=== PATIENT | female | born 1970 | race Caucasian/White ===

== ENCOUNTER 2020-01-04 16:37 | Inpatient (IN) | payer MEDICARE, MEDICAID ==
[~2020-01-04] VITALS: Ht 172.7 cm; Wt 129.3 kg
[~2020-01-04 16:37] MED LIST: ACYCLOVIR; AMOXICILLIN 50500 MG PO; IBU800 M1 PO; LORTAB 5/500 501 TAB PO; MOTRIN 800800 MG/TAB PO; NAPROSYN500 MG PO; NO HOME MEDICATIONS; PERCOCET 325 MG1 TA2 PO; PREDNISONE20 MG PO
[2020-01-04 17:55] LABS: BASO # 0.1 (0.0-0.2); BASO % 0.7 % (0.0-2.0); BILIRUBIN,TOTAL 0.7 mg/dL (0.0-1.0); C-REACTIVE PROTEIN 4.3 mg/dL (0.0-0.9); CALCIUM 8.9 mg/dL (8.4-10.2); CREATININE, serum 0.57 (0.52-1.25); EOS # 0.2 (0.0-0.7); EOS % 1.5 % (0-4.0); GRAN # 9.8 (1.4-6.5); GRAN % 78.7 % (42.2-75.2); HEMOGLOBIN 12.7 g/dl (12.5-16.0); LYMPH # 1.5 (1.2-3.4); LYMPH % 11.8 % (20.0-51.0); MEAN CELL VOLUME 85 fl (80.0-100.0); MEAN CORPUSCULAR HEMOGLOBIN 26 pg (27.0-31.0); MEAN CORPUSCULAR HGB CONC 30 g/dl (33.0-37.0); MEAN PLATELET VOLUME 11.3 fl (7.4-10.4); MONO # 0.9 (0.1-0.6); PLATELET COUNT 269 K/mm3 (130-400); POTASSIUM 4.7 mmol/L (3.4-5.0); RED BLOOD COUNT 4.95 M/mm3 (4.10-5.30); REDCELL DISTRIBUTION WIDTH-CV 15.1 % (11.5-14.5); TOTAL PROTEIN 7.2 gm/dL (6.4-8.2)
[2020-01-04 19:06] LABS: COLLECTION METHOD CLEAN CATCH
[2020-01-04 19:23] LABS: PH 5 (5-8); URINE APPEARANCE Clear; URINE BACTERIA None Seen /hpf; URINE BILIRUBIN Negative (NEGATIVE); URINE BLOOD Negative (NEGATIVE); URINE COLOR Yellow; URINE GLUCOSE Negative (NEGATIVE); URINE KETONE Negative (NEGATIVE); URINE LEUKOCYTE ESTERASE Negative (NEGATIVE); URINE NITRATE Negative (NEGATIVE); URINE PROTEIN(semi-quant) Negative (NEGATIVE); URINE RBC 0-2 /hpf; URINE UROBILINOGEN Negative (NEGATIVE)
[2020-01-04 19:25] LABS: TROPONIN-I 0.018 ng/mL (0.000-0.035)
--- NOTE | 2020-01-04 21:05 | NUR ---
Pt arrived to floor via stretcher. Pt voices no c/o pain or discomfort at this time. Assessment completed. No further concerns. Will continue to monitor through the night. Cardiology consult in the AM.
[2020-01-05] VITALS (10 sets, daily range): BP systolic 109–130; BP diastolic 53–98; PULSE 95–110; TEMP 97.8–99.9
[2020-01-05 06:31] LABS: BASO % 0.3 % (0.0-2.0); EOS # 0.1 (0.0-0.7); EOS % 0.5 % (0-4.0); GRAN # 10.7 (1.4-6.5); GRAN % 86.2 % (42.2-75.2); HEMATOCRIT 42.8 % (37.0-47.0); HEMOGLOBIN 12.3 g/dl (12.5-16.0); LYMPH # 0.9 (1.2-3.4); LYMPH % 7.1 % (20.0-51.0); MEAN CELL VOLUME 89 fl (80.0-100.0); MEAN CORPUSCULAR HEMOGLOBIN 26 pg (27.0-31.0); MEAN CORPUSCULAR HGB CONC 29 g/dl (33.0-37.0); MEAN PLATELET VOLUME 11.9 fl (7.4-10.4); MONO # 0.7 (0.1-0.6); MONO % 5.5 % (1.7-9.3); PLATELET COUNT 280 K/mm3 (130-400); RED BLOOD COUNT 4.82 M/mm3 (4.10-5.30); REDCELL DISTRIBUTION WIDTH-CV 15.2 % (11.5-14.5)
[2020-01-05 06:48] LABS: ALBUMIN 3.8 gm/dL (3.5-5.0); BILIRUBIN UNCONJUGATED 0.3 mg/dL (0.0-1.1); BILIRUBIN,DIRECT 0.2 mg/dL (0.0-0.4); BILIRUBIN,TOTAL 0.6 mg/dL (0.0-1.0); CALCIUM 8.6 mg/dL (8.4-10.2); CREATININE, serum 0.66 (0.52-1.25); POTASSIUM 5.1 mmol/L (3.4-5.0); TOTAL PROTEIN 6.9 gm/dL (6.4-8.2)
[2020-01-05 06:58] LABS: TROPONIN-I 0.035 ng/mL (0.000-0.035)
[2020-01-05 07:27] LABS: CHOLESTEROL RISK RATIO 2.3; MAGNESIUM 1.8 mg/dL (1.6-2.3)
--- NOTE | 2020-01-05 08:13 | NUR ---
Patient is alert and oriented. she is anxious. patient have a new order for urine drug screen and serum alcohol.
[2020-01-05 10:31] LABS: TRICYCLIC ANTIDEPRESS URINE NEGATIVE
[2020-01-05 11:48] LABS: INR 1.1 (0.8-3.0); PROTHROMBIN TIME 12.4 SECONDS (9.7-12.8)
--- NOTE | 2020-01-05 15:34 | NUR ---
SEE MERGE FOR MEDICATION ADMINISTRATION TIMES AND INTRA AND POST SEDATION ASSESSMENTS.
--- NOTE | 2020-01-05 16:18 | NUR ---
hand off report to shiv villanueva. pt is alert and oriented. hemostasis noted to r wrist. TR band in place with 11 in the band. pt on 6L per oxymask. family at bedside with patient. shiv villanueva instructed that pt was given 20mg of lasix prior to C, dr. jon stated he may add another dose upon arrival back to the room. shiv Villanueva notified.
--- NOTE | 2020-01-05 17:09 | NUR ---
Prospecting Observer met with patient to discuss discharge planning. Patient lives in [place] with her two grandchildren. Patient does not currently have a primary care physician but intends to follow up with one upon discharge. Patient obtains medications from [facility] in [place] with no difficulties. Patient does not use any DME at home. Patient is currently requiring oxygen although does not have home oxygen set up. SW to continue to monitor. Patient reports she is usually independent with ADLS. Patient states her mother Maria G (ph#[phone]) is her DPOA-HC. Patient plans to return home upon discharge. SW to continue to follow.
--- NOTE | 2020-01-05 17:32 | NUR ---
20G IV placed in left hand. Patient tolerated well. One attempt. Under supervision on Mona GONZALEZ.
--- NOTE | 2020-01-05 19:43 | NUR ---
Patient is alert and oriented , was anxious and tearful this morrning. patient was positive for amphetamine, benzodiazapines, cannabinoids. Dr Jeffers was informed when he came around for cardiac consult. ECG result was sinus tachy, abnormal rhythm. echogram result shows ejection fraction of 25-30% with regurgitation of all three valvs. Heart cath was accessed through Right Radial. crown and bridge dental lab technician nurse said patient result came back clean. post cath vital was within define limit, patient denies any pain. Temp elevated from 98.1 to 99.9. compression was removed from right radial. there was bleeding. Patient is resting on the bed after eating dinner. patient complain of mild throat pain after giving report to night nurse - CARLOS Benitez. nurse was informed. this afternoon patient IV dislogged, A student nurse Torie inserted a 20G in her Right hand.
--- NOTE | 2020-01-05 22:12 | NUR ---
RECIEVED REPORT FROM DAY SHIFT NURSE. PATIENT WAS NOT HAVING ANY PAIN. BUT THEN REPORTED PAIN AN HOUR OR SO LATER AND PAIN MEDICATIONS WERE GIVEN TO PATIENT TO HELP WITH THE PATIENT. PATIENT WAS EMOTIONAL AND JUST STARTED CRYING WHEN HER MOTHER WALKED INTO THE ROOM. MOTHER WANTED AN UPDATE AND WHAT THE PLAN IS. PLAN IS TO GIVE THE PATIENT SOME LASIX AND WATCH HER I/O'S. TEMPERATURE WAS UNDERCONTROL AND NOT A CONCERN.
[2020-01-06] VITALS (7 sets, daily range): BP systolic 105–138; BP diastolic 50–87; PULSE 87–104; TEMP 97.6–99
--- NOTE | 2020-01-06 05:21 | NUR ---
PATIENT HAS BEEN SLEEPING THROUGHOUT THE NIGHT. PUSHED THE CALL LIGHT A COUPLE OF TIMES ON ACCIDENT AND DIDNT NEED ANY HELP. NO NEEDS AT THIS TIME. WILL GIVE LEONIDES SHIFT REPORT ON THE PLAN PER THE DOCTORS NOTE TO DIURES HER AND WATCH HER I/O.
[2020-01-06 09:14] LABS: BASO # 0.1 (0.0-0.2); BASO % 0.4 % (0.0-2.0); EOS % 0.2 % (0-4.0); GRAN # 9.8 (1.4-6.5); GRAN % 85.6 % (42.2-75.2); HEMATOCRIT 39.8 % (37.0-47.0); HEMOGLOBIN 11.7 g/dl (12.5-16.0); LYMPH # 0.8 (1.2-3.4); LYMPH % 7.4 % (20.0-51.0); MEAN CELL VOLUME 89 fl (80.0-100.0); MEAN CORPUSCULAR HEMOGLOBIN 26 pg (27.0-31.0); MEAN CORPUSCULAR HGB CONC 29 g/dl (33.0-37.0); MEAN PLATELET VOLUME 11.4 fl (7.4-10.4); MONO # 0.7 (0.1-0.6); PLATELET COUNT 243 K/mm3 (130-400); RED BLOOD COUNT 4.48 M/mm3 (4.10-5.30); REDCELL DISTRIBUTION WIDTH-CV 15.1 % (11.5-14.5)
[2020-01-06 09:28] LABS: ALBUMIN 3.5 gm/dL (3.5-5.0); BILIRUBIN,TOTAL 0.5 mg/dL (0.0-1.0); CREATININE, serum 0.59 (0.52-1.25); POTASSIUM 4.7 mmol/L (3.4-5.0); TOTAL PROTEIN 6.4 gm/dL (6.4-8.2)
--- NOTE | 2020-01-06 10:56 | NUR ---
Initial visit; Patient and her mother thanked Rough Rice Grader for looking in on her, offering prayer and encouragement.
--- NOTE | 2020-01-06 11:18 | NUR ---
Waterworks Supervisor attended clinical rounds with the team. Patient requiring 4 liters of oxygen at this time. SW reviewed patient's progress note which stated patient's UDS tested positive for amphetamines, methamphetamines, THC, and benzos. Per intake yesterday, patient is primary caregiver for her two grandchildren ages 7 and 11. Patient's grandchildren currently being cared for by her aunt, Vidhi. SW made report to Child Protective Services about the above listed concerns for substance abuse. Intake #[id number].
--- NOTE | 2020-01-06 11:22 | NUR ---
Reported onto CARLOS Oconnell. Assessment as charted. Pt has O2 nasal cannula on at 4L, 96%. Tele on. Implemented I&O measures. INT left hand, no swelling or redness noted. VSS.
--- NOTE | 2020-01-06 16:08 | NUR ---
Veneer Sorter met with patient to address UDS that was positive for amphetamines, methamphetamines, THC, and benzos. Patient denies use of amphetamines, methamphetamines, and benzos but does state that she was in a dumpster on Sunday and didn't know what she may have come into contact with. Patient reports she goes "dumpster diving" on occasion. Patient states she does use marijuana occasionally whenever she can afford it, which is not often. Patient states she has been drug free for over two years but has a history of substance abuse. Patient reports she has had both inpatient and outpatient treatment in the past in [place] and [place]. Patient reports one of her relapses was after the of her cousin. Patient states she is aware of NA meetings in her area and knows how to access meetings if she feels she needs them. Patient states she has been institutionalized before for mental health issues. Patient does not currently receive any mental health services as [place] which makes it difficult to make appointments. Patient states she will not go to if she did establish any mental health services. SW provided patient with list of mental health therapists and social workers in the [facility] for patient to review. SW to continue to follow as needed.
--- NOTE | 2020-01-06 20:00 | NUR ---
Recieved report from CARLOS Oconnell. Assessment complete. Alert and oriented. Pt laying in bed. C/O headache and pain to neck and seems agitated. PRN tylenol and PRN ativan adminsitered. INT to LW intact, flushed, dressing CDI. Tele monitor in place, leads checked. Needs met. Call light within reach.
[2020-01-07 04:01] VITALS: BP 147/42; PULSE 92; TEMP 98.4
--- NOTE | 2020-01-07 05:48 | NUR ---
Pt made no complaints during this shift. Needs met. Call light within reach.
[2020-01-07 06:05] LABS: BASO # 0.1 (0.0-0.2); BASO % 0.6 % (0.0-2.0); EOS # 0.1 (0.0-0.7); GRAN # 6.8 (1.4-6.5); GRAN % 76.5 % (42.2-75.2); HEMATOCRIT 40.4 % (37.0-47.0); HEMOGLOBIN 11.7 g/dl (12.5-16.0); LYMPH # 1.2 (1.2-3.4); LYMPH % 13.3 % (20.0-51.0); MEAN CELL VOLUME 89 fl (80.0-100.0); MEAN CORPUSCULAR HEMOGLOBIN 26 pg (27.0-31.0); MEAN CORPUSCULAR HGB CONC 29 g/dl (33.0-37.0); MEAN PLATELET VOLUME 11.3 fl (7.4-10.4); MONO # 0.8 (0.1-0.6); MONO % 8.4 % (1.7-9.3); PLATELET COUNT 238 K/mm3 (130-400); RED BLOOD COUNT 4.56 M/mm3 (4.10-5.30); REDCELL DISTRIBUTION WIDTH-CV 14.9 % (11.5-14.5)
[2020-01-07 06:16] LABS: CALCIUM 8.1 mg/dL (8.4-10.2); CREATININE, serum 0.58 (0.52-1.25); POTASSIUM 4.3 mmol/L (3.4-5.0)
--- NOTE | 2020-01-07 06:58 | NUR ---
Report given to CARLOS Gary.
[2020-01-07 07:18] VITALS: BP 108/54; BP 128/71; PULSE 89; TEMP 98.3
--- NOTE | 2020-01-07 08:45 | NUR ---
Assessment complete. Pt resting in bed with eyes closed upon entering room, awakens easily with verbal stimuli, A&O x 3. Physical assessment unremarkable with trace edema to BLE. Saline lock IV to left hand without s/s of complications. Pt reports pain to back of neck 9 out of 10, requests medication if available. O2 at 4 L/min via NC with sats 96%, O2 turned down to 3 L/min and sats at 94%, O2 turned further down to 2 L/min via NC and RT notified. No further needs reported. Call light in reach.
[2020-01-07 11:07] VITALS: BP 134/71; PULSE 83; TEMP 98
--- NOTE | 2020-01-07 11:30 | NUR ---
Upon entering to administer sched medication, pt resting with eyes closed, nasal cannula laying next to pt's shoulder, sats reading 70% on room air. Nasal cannula replaced by this nurse and O2 turned up to 3 L/min, sats increase to 95% after deep breaths by pt. RT and PA notified.
--- NOTE | 2020-01-07 16:12 | NUR ---
[place] was contacted by patient's mother Maria G (ph#[phone]) who would like to meet with SW to discuss discharge planning. BURAK will meet with Maria G in patient's room tomorrow at 0830.
[2020-01-07 16:23] VITALS: BP 124/75; PULSE 92; TEMP 97.9
--- NOTE | 2020-01-07 18:45 | NUR ---
Bedside report with CARLOS Sarah. Upon entering room, pt laying in bed, moaning, reports having coughed which caused a headache. PRN Tylenol to be administered with bedtime medications. NC up on pt's forehead, replaced in nares, sats reading 92%.
[2020-01-07 20:50] VITALS: BP 126/64; PULSE 93; TEMP 98.2
--- NOTE | 2020-01-07 21:12 | NUR ---
PT GROANING UPON ENTRY, ASKED FOR TYLENOL REPORTING PAIN 5/10 IN NECK. TYLENOL ADMINISTERED AND VITALS TAKEN. OXYGEN STABLE SO LOWERED O2 TO 2L, TOLERATING WELL. WATER, TABLE, CALL LIGHT AT BEDSIDE. PT HAD NO OTHER REQUESTS, BED IN LOWEST POSITION.
[2020-01-07 23:15] VITALS: BP 128/65; PULSE 83; TEMP 97.9
[2020-01-08] VITALS (7 sets, daily range): BP systolic 128–152; BP diastolic 69–94; PULSE 83–124; TEMP 97.2–100.3
--- NOTE | 2020-01-08 05:06 | NUR ---
PT IN BED SLEEPING, PT ALERT ORIENTED, HARD TO TELL IF BLE WEAKNESS IS ACUTALLY WEAKNESS OR IF SHE JUST DOES NOT WANT TO HOLD HER LEGS UP FOR EXTENDED AMOUNT OF TIME. INDEPENDENT IN ROOM FINE, SHIFT UNREMARKABLE. BED IN LOW POSITION, OVERALL PLEASANT, GROANS WHEN ASLEEP AND AWAKE, STATES PAIN 5/10 IN NECK. CALL LIGHT AND WATER WITHIN REACH, WATER REFILLED, NO OTHER NEEDS AT THIS TIME.
[2020-01-08 08:04] LABS: BASO # 0.1 (0.0-0.2); BASO % 0.6 % (0.0-2.0); EOS # 0.2 (0.0-0.7); EOS % 1.9 % (0-4.0); GRAN # 6.5 (1.4-6.5); HEMATOCRIT 42.1 % (37.0-47.0); HEMOGLOBIN 12.3 g/dl (12.5-16.0); LYMPH # 1.3 (1.2-3.4); LYMPH % 15.6 % (20.0-51.0); MEAN CELL VOLUME 88 fl (80.0-100.0); MEAN CORPUSCULAR HEMOGLOBIN 26 pg (27.0-31.0); MEAN CORPUSCULAR HGB CONC 29 g/dl (33.0-37.0); MEAN PLATELET VOLUME 11.1 fl (7.4-10.4); MONO # 0.6 (0.1-0.6); MONO % 6.6 % (1.7-9.3); PLATELET COUNT 264 K/mm3 (130-400); RED BLOOD COUNT 4.81 M/mm3 (4.10-5.30); REDCELL DISTRIBUTION WIDTH-CV 14.7 % (11.5-14.5)
[2020-01-08 08:21] LABS: CALCIUM 8.4 mg/dL (8.4-10.2); CREATININE, serum 0.63 (0.52-1.25); POTASSIUM 4.7 mmol/L (3.4-5.0)
--- NOTE | 2020-01-08 13:22 | NUR ---
Manager Online met with patient, patient's mother Maria G and patient's aunt Patrick to discuss discharge planning. Patient's mother reports that she has concerns about patient caring for her grandchildren while she is recovering from being in the hospital. Patient became tearful and stated that the kids were staying with her and not going anywhere. Maria G advised that's not what she meant and only meant that patient will need some help upon discharge. Maria G reports she plans to stay with patient for some time before returning to [place]. BURAK advised she would contact [facility] to explore if in home supports were available through patient's Medicaid. BURAK attended clinical rounds with the team and Hospitalist answered questions about patient's diagnosis and plan of care. Patient's current diet was discussed and patient expressed she does not eat well. Hospitalist to order Dietitian consult. BURAK contacted the [employer] and left a message for Ludmila in options counseling. BURAK also followed up with patient and provided [facility] Resource Guide. BURAK pointed out food resource in [place], where patient lives and patient states she already utilizes this resource. Patient states she will look over guide at a later time. SW to continue to follow.
--- NOTE | 2020-01-08 13:43 | NUR ---
RA SP02 ASLEEP 82%. PLACED ON 2 LPM NC 92%. RN NOTIFIED
--- NOTE | 2020-01-08 16:41 | NUR ---
SW presented Medicare.gov's list of home health agencies in the patient's geographical location. The patient chose [facility]. Referral faxed. Awaiting response.
--- NOTE | 2020-01-08 23:16 | NUR ---
PT LAYING IN BED COMPLAINING OF PAIN 6/10 IN HEAD BUT DID NOT WANT TYLENOL. ASKED FOR SANDWICH BOX, THOUGHT THAT MIGHT BE WHY SHE IS HAVING THE HEADACHE, SANDWICH BROUGHT TO ROOM. FLUSHED IV SITE. ASSESSMENT UNREMARKABLE. PT DENIES ANY OTHER NEEDS AT THIS TIME.
[2020-01-09 02:53] VITALS: BP 121/72; PULSE 85; TEMP 97.6
--- NOTE | 2020-01-09 05:18 | NUR ---
PT SLEEPING MOST OF NIGHT, EPISODE AROUND 0000 WHERE PT STARTED CRYING WANTING TO SEE HER MOM AND ASKING IF SHE WAS PRESENT. THIS WAS DURING HER HEADACHE, TYLENOL ADMINISTERED, NEURO CHECKS NORMAL. PT REFUSED SHOWER DUE TO "THERES NO HOT WATER IN THIS PLACE, YEAH A SHOWER IS NOT HAPPENING". BED IN LOW POSITION, WATER AND CALL LIGHT AT BEDSIDE. PT DENIES ANY OTHER NEEDS AT THIS TIME.
[2020-01-09 06:18] LABS: BASO # 0.1 (0.0-0.2); BASO % 0.7 % (0.0-2.0); EOS # 0.2 (0.0-0.7); EOS % 2.3 % (0-4.0); GRAN # 6.4 (1.4-6.5); GRAN % 73.6 % (42.2-75.2); HEMATOCRIT 43.1 % (37.0-47.0); HEMOGLOBIN 12.5 g/dl (12.5-16.0); LYMPH # 1.4 (1.2-3.4); LYMPH % 16.1 % (20.0-51.0); MEAN CELL VOLUME 88 fl (80.0-100.0); MEAN CORPUSCULAR HEMOGLOBIN 26 pg (27.0-31.0); MEAN CORPUSCULAR HGB CONC 29 g/dl (33.0-37.0); MEAN PLATELET VOLUME 10.6 fl (7.4-10.4); MONO # 0.6 (0.1-0.6); PLATELET COUNT 286 K/mm3 (130-400); RED BLOOD COUNT 4.91 M/mm3 (4.10-5.30); REDCELL DISTRIBUTION WIDTH-CV 14.9 % (11.5-14.5)
[2020-01-09 06:32] LABS: CALCIUM 8.6 mg/dL (8.4-10.2); CREATININE, serum 0.73 (0.52-1.25); POTASSIUM 4.6 mmol/L (3.4-5.0)
[2020-01-09 07:19] VITALS: BP 148/98; PULSE 92; TEMP 97.3
[2020-01-09] MEDS ORDERED: ZESTRIL 5MG5 MG PO (09:08)
[2020-01-09] MEDS ORDERED: COREG 6.256.25 MG/TA PO (09:08)
[2020-01-09] MEDS ORDERED: ALDACTONE 25MG25 M1 PO (09:08)
[2020-01-09] MEDS ORDERED: GLUCOPHAGE500 MG/TAB PO (09:09)
[2020-01-09] MEDS ORDERED: LASIX 20MG TABL20 MG PO (09:09)
--- NOTE | 2020-01-09 09:52 | NUR ---
PT SPO2 ROOM AIR 93%. WALKED APPROX 200 FEET ON ROOM AIR SPO2 93%. PT HAD N/C.
--- NOTE | 2020-01-09 10:42 | NUR ---
Woven Label Designer attended clinical rounds with the team. Patient to discharge home today with home health. Exercise Ox ordered. BURAK met with patient to follow up on choice for primary care. BURAK provided list of primary care providers in [place] and patient selected Dr. Francisco at [facility]. BURAK provided choice to batch unit treater who made follow up appointment for patient. BURAK collaborated with Hospitalist to review exercise ox and patient does not qualify for home oxygen. Hospitalist reviewed patient's chart and determined patient does not require night oxygen. BURAK provided this update to patient who expressed relief that she did not have to continue oxygen at home. BURAK contacted Navdeep at [facility] and faxed updates. Navdeep advised they can accept patient. BURAK provided this update to patient and advised [facility] would contact her to set up initial visit. BURAK faxed discharge orders to Navdeep at [facility]. BURAK presented and explained IM form to patient who verbalized understanding then provided signature. Patient declined copy. BURAK placed form in patient's chart. No additional needs identified at this time.
--- NOTE | 2020-01-09 11:15 | NUR ---
PT HAD UNEVENTFUL MORNING. STUDENT NURSE ASSIGNED TO PT THIS AM WELL. HAS BEEN UP WALKING IN [place] WITHOUT O2 THIS AM, NO ISSUES NOTED. THIS NURSE WENT INTO DISCUSS PT BEING ABLE TO DISCHARGE TODAY. PT STATED SHE WAS GLAD TO HEAR IT AND WOULD CALL HER MOM FOR A RIDE. STUDENT NURSE WILL BE IN TO REMOVE IV. NO OTHER ISSUES OR NEEDS VOICED AT THIS TIME.
--- NOTE | 2020-01-09 11:55 | NUR ---
Patient's mother, Maria G inquired about a disabled placard for patient's vehicle. SW obtained signature from Hospitalist on application the provided signed application and instructions to patient and patient's mother. SW instructed patient to take completed application to the DMV and patient verbalized understanding. No additional needs at this time.
--- NOTE | 2020-01-09 12:30 | NUR ---
DISCHARGE EDUCATION PROVIDED TO PT. NO QUESTIONS VOICED. PAPERWORK SIGNED. STUDENT NURSE REMOVED IV, NO ISSUES NOTED. THIS NURSE ESCORTED PT MOLLY WITHOUT ISSUES. PT MOM ABLE TO DRIVE PT HOME.
--- NOTE | 2020-01-09 13:53 | NUR ---
Primary nurse was assisted with [phone] patient care by [employer] student Rusty Azul and [employer] instructor Donna Davis RN-BC.
== END 2020-01-09 12:30 | disposition home or self-care (01) | DRG 286 ==
LOC: COL.ER 16:37 → MEDICAL 20:21
PROVIDERS: Emergency Medicine; Nurse Practitioner; Physician Assistant; Student in an Organized Health Care Education/Training Program; ADMIT Hospitalist
PROC: 4A023N7 Measurement of Cardiac Sampling and Pressure, Left Heart, Percutaneous Approach (ICD-10-PCS; principal; 2020-01-04)
PROC: B2111ZZ Fluoroscopy of Multiple Coronary Arteries using Low Osmolar Contrast (ICD-10-PCS; 2020-01-04)
DX: I11.0 Hypertensive heart disease with heart failure (principal); I50.21 Acute systolic (congestive) heart failure; J96.01 Acute respiratory failure with hypoxia; R65.10 Systemic inflammatory response syndrome (SIRS) of non-infectious origin without acute organ dysfunction; E11.65 Type 2 diabetes mellitus with hyperglycemia; R79.89 Other specified abnormal findings of blood chemistry; R94.5 Abnormal results of liver function studies; F19.10 Other psychoactive substance abuse, uncomplicated; I42.0 Dilated cardiomyopathy; Z88.5 Allergy status to narcotic agent; F31.9 Bipolar disorder, unspecified
CPT/HCPCS: OP; 99231-AI; 99232-AI; 99233-AI; 99239; A9284; G0378; J1644; J1650; J1940; J2060; J2250; J2405; J3010; J7030; Q9967